=== PATIENT | female | born 1945 | race Caucasian/White ===

== ENCOUNTER 2022-11-10 18:42 | Emergency (ER) | payer MEDICARE, OTHER ==
[~2022-11-10] VITALS: Ht 152.4 cm; Wt 72.6 kg
--- NOTE | 2022-11-10 19:16 | NUR ---
Dr. Martinez evaluating patient at bedside. MSE in progress.
[2022-11-10] MEDS ORDERED: LIDOCAINE HCL 2% 20 ML VIAL IJ ONE (19:30)
--- NOTE | 2022-11-10 20:11 | NUR ---
Patient aox4, resting in gurney comfortably. Daughter at bedside.
--- NOTE | 2022-11-10 20:55 | NUR ---
Patient discharged to home in stable condition. Written and verbal after care instructions given. Patient verbalizes understanding of instructions. Stressed follow up or return to ER for worsening s/s.
[2022-11-10 21:10] VITALS: BP 144/65
== END 2022-11-10 21:11 | disposition home or self-care (01) ==
LOC: ER 18:42
DX: S60.453A Superficial foreign body of left middle finger, initial encounter (principal); Z86.73 Personal history of transient ischemic attack (TIA), and cerebral infarction without residual deficits; X58.XXXA Exposure to other specified factors, initial encounter; Y93.89 Activity, other specified; Y92.89 Other specified places as the place of occurrence of the external cause; Y99.8 Other external cause status
CPT/HCPCS: A4663